=== PATIENT | male | born 1995 | race Caucasian/White ===

== ENCOUNTER 2016-12-22 01:15 | Emergency (ER) | payer OTHER ==
[~2016-12-22] VITALS: Ht 188 cm; Wt 55.9 kg
[2016-12-22 01:20] VITALS: TEMP 37; Ht 188 cm; Wt 55.9 kg
[2016-12-22] MEDS ORDERED: SODIUM CHLORIDE 0.9% 1000ML 1,000 ML IV STA (01:30)
[2016-12-22 01:42] LABS: BASO % 0.2 %; BASO ABS # 0.02 K/uL (0-0.2); COMPLETE YES; EOS % 0.2 %; HEMATOCRIT 46.4 % (42-52); IG% 0.2 %; LYMPH ABS # 2.34 K/uL (1.2-3.4); MEAN CELL VOLUME 90.6 fL (80-100); MEAN CORPUSCULAR HEMOGLOBIN 31.6 pg (25-34); MEAN CORPUSCULAR HGB CONC 34.9 g/dl (32-36); MEAN PLATELET VOLUME 9.5 fL (7.4-10.4); MONO % 7.7 %; NEUT % 62.7 %; PLATELET COUNT 305 K/uL (130-400); RED BLOOD COUNT 5.12 M/uL (4.7-6.1); WHITE BLOOD COUNT 8.06 K/uL (4.8-10.8)
[2016-12-22 01:49] LABS: BLOOD UREA NITROGEN 7 mg/dl (7-18); CREATININE 0.99 mg/dl (0.60-1.40); GLUCOSE 98 mg/dl (70-99); INR 1.1 (0.9-1.1); PARTIAL THROMBOPLASTIN RATIO 1.1; PROTHROMBIN TIME (PATIENT) 11.8 SECONDS (9.0-12.0)
[2016-12-22 01:50] LABS: ALT/SGPT 17 U/L (12-78); AST/SGOT 15 U/L (15-37); BUN/CREATININE RATIO 7.5 (10-20); CARBON DIOXIDE 27 mmol/L (21-32); CHLORIDE 106 mmol/L (98-107); POTASSIUM 3.7 mmol/L (3.5-5.1); SODIUM 140 mmol/L (136-145)
[2016-12-22 01:52] LABS: ALKALINE PHOSPHATASE 75 U/L (45-117)
[2016-12-22 02:01] LABS: ACETAMINOPHEN 25 ug/ml (10-30)
--- NOTE | 2016-12-22 06:03 | EMERGENCY ROOM VISIT NOTE ---
History Report prepared by Trav: Tom Flanagan Under the Supervision of: Dr. Aicha Beavers D.O. First contact with patient: 01:18 Chief Complaint: OVERDOSE (INTENTIONAL) Stated Complaint: OVERDOSE History of Present Illness The patient is a 21 year old male who presents to the Emergency Room with complaints of a multi-drug overdose beginning three hours ago. He states that he took Tylenol PM and Benadryl in an attempt to hurt himself. He states that he took 6 doses of Tylenol PM, and roughly 12 doses of Benadryl. The patient states that his intention was to not wake up again. He admits to drinking alcohol tonight and states "I was not in the right state of mind". He currently complains of dizziness. The patient states that he has been under a lot of stress recently. He states that he cannot afford school and just started a new job. He states that he left his parent's house and is not speaking with them. The patient has a history of depression, but does not follow up with a psychiatrist. He has tried to hurt himself in the past. He has a history of self cutting associated with releasing anger. The patient denies any nausea, or abdominal pain. He notes that he has a history of breathing problems which have worsened a bit recently. Ex girlfriend here to fill out 302 per case mgmt. Source of History: patient Onset: Three hours ago Symptom Intensity: 6 doses of Tylenol PM and 12 doses of Benadryl Quality: other (multi-drug overdose) Timing: other (episode) Associated Symptoms: No nausea, No abdominal pain Note: Additional symptoms: dizziness. Review of Systems See HPI for pertinent positives & negatives. A total of 10 systems reviewed and were otherwise negative. Past Medical & Surgical Medical Problems: (1) Depression (2) Suicide attempt Family History No pertinent family history stated. Social History Alcohol Use: occasionally Occupation Status: employed Current/Historical Medications No Active Prescriptions or Reported Meds Allergies Coded Allergies: No Known Allergies (Unverified , 12/22/16) Physical Exam Vital Signs Date Time Temp Pulse Resp B/P (MAP) Pulse Ox O2 Delivery O2 Flow Rate FiO2 12/22/16 09:16 77 12/22/16 07:30 77 18 119/75 97 Room Air 12/22/16 06:01 106 18 130/79 96 12/22/16 05:14 87 12/22/16 04:34 73 18 118/75 97 12/22/16 02:30 118/76 12/22/16 02:15 89 18 100 Room Air 12/22/16 02:04 139/86 12/22/16 01:45 96 19 100 Room Air 12/22/16 01:39 Room Air 12/22/16 01:39 Room Air 12/22/16 01:21 104 12/22/16 01:20 37.0 104 18 143/84 100 Room Air 12/22/16 01:17 143/94 Physical Exam GENERAL: Patient is thin. Alert, anxious appearing, well nourished, no distress , non-toxic EYE EXAM: normal conjunctiva, PERRL and EOM's grossly intact OROPHARYNX: no exudate, no erythema, lips, buccal mucosa, and tongue normal and mucous membranes are moist NECK: supple, no nuchal rigidity, no adenopathy, non-tender LUNGS: Clear to auscultation. Normal chest wall mechanics HEART: no murmurs, S1 normal and S2 normal ABDOMEN: abdomen soft, non-tender, normo-active bowel sounds, no masses, no rebound or guarding. BACK: Back is symmetrical on inspection and there is no deformity, no midline tenderness, no CVA tenderness. SKIN: no rashes and no bruising. Well healed scar from previous skin graft on the medial aspect of the left ankle. Normal pulses. No evidence of trauma. UPPER EXTREMITIES: upper extremities are grossly normal. LOWER EXTREMITIES: No pitting edema. NEURO EXAM: Normal sensorium, cranial nerves II-XII grossly intact, normal speech, no gross weakness of arms, no gross weakness of legs. PSYCH: Admits to SI. Admits to suicide attempt tonight. Medical Decision & Procedures ER Provider Diagnostic Interpretation: One View Chest X-ray interpreted by me: no effusion. No cardiomegaly. No wide mediastinum. No pulmonary edema. No pneumothorax. No fracture. No focal infiltrate. Laboratory Results 12/22/16 01:22 Red Blood Count 5.12, Mean Corpuscular Volume 90.6, Mean Corpuscular Hemoglobin 31.6, Mean Corpuscular Hemoglobin Concent 34.9, Mean Platelet Volume 9.5, Neutrophils (%) (Auto) 62.7, Lymphocytes (%) (Auto) 29.0, Monocytes (%) (Auto) 7.7, Eosinophils (%) (Auto) 0.2, Basophils (%) (Auto) 0.2, Neutrophils # (Auto) 5.04, Lymphocytes # (Auto) 2.34, Monocytes # (Auto) 0.62, Eosinophils # (Auto) 0.02, Basophils # (Auto) 0.02 12/22/16 01:22 Test 12/22/16 01:22 12/22/16 03:54 White Blood Count 8.06 K/uL (4.8-10.8) Red Blood Count 5.12 M/uL (4.7-6.1) Hemoglobin 16.2 g/dL (14.0-18.0) Hematocrit 46.4 % (42-52) Mean Corpuscular Volume 90.6 fL (80-100) Mean Corpuscular Hemoglobin 31.6 pg (25-34) Mean Corpuscular Hemoglobin Concent 34.9 g/dl (32-36) Platelet Count 305 K/uL (130-400) Mean Platelet Volume 9.5 fL (7.4-10.4) Neutrophils (%) (Auto) 62.7 % Lymphocytes (%) (Auto) 29.0 % Monocytes (%) (Auto) 7.7 % Eosinophils (%) (Auto) 0.2 % Basophils (%) (Auto) 0.2 % Neutrophils # (Auto) 5.04 K/uL (1.4-6.5) Lymphocytes # (Auto) 2.34 K/uL (1.2-3.4) Monocytes # (Auto) 0.62 K/uL (0.11-0.59) Eosinophils # (Auto) 0.02 K/uL (0-0.5) Basophils # (Auto) 0.02 K/uL (0-0.2) RDW Standard Deviation 38.2 fL (36.4-46.3) RDW Coefficient of Variation 11.5 % (11.5-14.5) Immature Granulocyte % (Auto) 0.2 % Immature Granulocyte # (Auto) 0.02 K/uL (0.00-0.02) Prothrombin Time 11.8 SECONDS (9.0-12.0) Prothromb Time International Ratio 1.1 (0.9-1.1) Activated Partial Thromboplast Time 28.1 SECONDS (21.0-31.0) Partial Thromboplastin Ratio 1.1 Anion Gap 7.0 mmol/L (3-11) Est Creatinine Clear Calc Drug Dose 93.3 ml/min Estimated GFR () 125.7 Estimated GFR (Non- 108.4 BUN/Creatinine Ratio 7.5 (10-20) Calcium Level 9.0 mg/dl (8.5-10.1) Total Bilirubin 1.6 mg/dl (0.2-1) Direct Bilirubin < 0.1 mg/dl (0-0.2) Aspartate Amino Transf (AST/SGOT) 15 U/L (15-37) Alanine Aminotransferase (ALT/SGPT) 17 U/L (12-78) Alkaline Phosphatase 75 U/L (45-117) Total Creatine Kinase 71 U/L (39-308) Total Protein 8.0 gm/dl (6.4-8.2) Albumin 4.3 gm/dl (3.4-5.0) Lipase 73 U/L (73-393) Salicylates Level < 1.7 mg/dl (2.8-20) Ethyl Alcohol mg/dL < 3.0 mg/dl (0-3) Acetaminophen Level 14 ug/ml (10-30) Laboratory results per my review. Medications Administered Medications (Trade) Dose Ordered Sig/Joann Route Start Time Stop Time Status Last Admin Dose Admin Sodium Chloride 1,000 ml @ 999 mls/hr Q1H1M STAT IV 12/22/16 01:30 12/22/16 02:30 DC 12/22/16 01:30 999 MLS/HR ECG Indication: toxicologic Rate (beats per minute): 101 Rhythm: sinus tachycardia Findings: no acute ischemic change, no ectopy, other (Borderline LVH. Normal axis. Normal intervals. ) ED Course 0123: The patient was evaluated in room C3. A complete history and physical exam was performed. 0130: Ordered Sodium Chloride 1000 ml @ 999 mls/hr IV. 0555: I spoke with the procurement representative from [address] [place] [address]. She feels that the patient would benefit from inpatient care. I signed the voluntary 201 petitioning statement. A bed search is under way. 0730: The patient was signed out to Dr. Mcfarlane pending bed placement. Medical Decision Differential diagnosis: Etiologies such as mood disorder, infection, hypoglycemia, electrolyte abnormalities, cardiac sources, intracerebral event, toxicologic, neurologic, as well as others were entertained. Pt with stable VS and tylenol levels trending down. Doubt significant tylenol ingestion, no evidence of anticholinergic toxicity. Initial tachycardia likely due to anxiety and mild dehydration. HR improved quickly. Labs otw reassuring. Doubt any additional co-ingestion. 302 started by ex-GF, however pt signed 201. Medication Reconcilliation Current Medication List: was personally reviewed by me Blood Pressure Screening Patient's blood pressure: Elevated blood pressure Blood pressure disposition: Elevated BP felt to be situational Impression Primary Impression: Drug overdose, intentional Additional Impressions: Suicidal ideation Depression Scribe Attestation The scribe's documentation has been prepared under my direction and personally reviewed by me in its entirety. I confirm that the note above accurately reflects all work, treatment, procedures, and medical decision making performed by me. Departure Information Dispostion Still a Patient (Signed out to Dr. Mcfarlane) Prescriptions No Active Prescriptions or Reported Meds Referrals No Doctor, Assigned (PCP) Patient Instructions My [facility] Problem Qualifiers Primary Impression: Drug overdose, intentional Encounter type: initial encounter Qualified Codes: T50.902A - Poisoning by unspecified drugs, medicaments and biological substances, intentional self-harm , initial encounter Additional Impressions: Depression Depression Type: unspecified Qualified Codes: F32.9 - Major depressive disorder, single episode, unspecified
--- NOTE | 2016-12-22 06:23 | DIAGNOSTIC IMAGING REPORT ---
CHEST ONE VIEW PORTABLE CLINICAL HISTORY: sob dyspnea COMPARISON STUDY: No previous studies for comparison. FINDINGS: The bones soft tissues and hemidiaphragms are normal. The cardiomediastinal silhouette is normal. The lungs are clear. The pulmonary vasculature is normal. IMPRESSION: Negative chest. The above report was generated using voice recognition software. It may contain grammatical, syntax or spelling errors. Electronically signed by: Bossman Boss M.D. 12/22/2016 6:21 AM Dictated Date/Time: 12/22/2016 6:21 AM
--- NOTE | 2016-12-22 08:33 | EMERGENCY ROOM VISIT NOTE ---
ED Visit Note First contact with patient: 08:32 The patient was taken in signout from Dr. Beavers at the change of shift. Please see that note for details. The patient was pending psychiatry voluntary placement. The patient was evaluated by the [facility] and accepted. Prior to discharge the patient was doing well and without complaints. The patient was transferred securely for further inpatient treatment.
[2016-12-22 10:37] LABS: BENZODIAZEPINE, URINE NEG (NEG); COCAINE,URINE NEG (NEG); PHENCYCLIDINE, URINE NEG (NEG)
[2016-12-22 16:39] VITALS: BP 123/82; PULSE 95; O2SAT 97
== END 2016-12-22 16:40 ==
LOC: EDBD 01:15 → C.EDC 01:17 → C.EDA 16:40
DX: T50.902A Poisoning by unspecified drugs, medicaments and biological substances, intentional self-harm, initial encounter (principal); R45.851 Suicidal ideations; F32.9 Major depressive disorder, single episode, unspecified; Z91.5 Personal history of self-harm

== ENCOUNTER 2017-03-21 15:13 | Emergency (ER) | payer OTHER ==
[~2017-03-21] VITALS: Ht 188 cm; Wt 59.6 kg
[2017-03-21 15:23] VITALS: TEMP 36.6; Ht 188 cm; Wt 59.6 kg
[2017-03-21] MEDS ORDERED: MOTRIN HOME PACK 600 MG (4)BTL PO ONE (15:45)
[2017-03-21] MEDS ORDERED: IBUPROFEN 600 MG TAB PO STA (15:49)
--- NOTE | 2017-03-21 15:55 | DIAGNOSTIC IMAGING REPORT ---
L KNEE 3 VIEWS CLINICAL HISTORY: L knee injury/contusion pain. Trauma. COMPARISON: None. DISCUSSION: The bones and joint spaces appear intact. There is no evidence of fracture, dislocation or bony disease. There is no evidence for soft tissue swelling. IMPRESSION: Negative study. The above report was generated using voice recognition software. It may contain grammatical, syntax or spelling errors. Electronically signed by: Bossman Boss M.D. 03/21/2017 3:53 PM Dictated Date/Time: 03/21/2017 3:53 PM
[2017-03-21 15:59] VITALS: BP 125/67; PULSE 71; O2SAT 97
--- NOTE | 2017-03-21 16:21 | EMERGENCY ROOM VISIT NOTE ---
History First contact with patient: 15:25 Chief Complaint: KNEEPAIN Stated Complaint: KNEE PAIN History of Present Illness The patient is a 22 year old male who presents to the Emergency Room with complaints of left knee pain. The patient reports that he walked into a desk twice approximately 2 weeks ago. The patient did not start to have any problems until approximately one week ago, and reports that the pain seems to be worsening. The pain is worse when walking down steps. He denies any instability, clicking or locking of the knee. He denies any pain extending into the inner aspect of the knee, posterior knee, calf, hamstrings or thigh. He denies any paresthesias or numbness of the left lower extremity, and also denies any left hip or back pain. The patient denies any significant problems with his knees in the past, and currently rates his discomfort a 7 out of 10 with weightbearing. Review of Systems 10 system review was performed and was negative except for pertinent positives and negatives as indicated in history of present illness Past Medical/Surgical History Medical Problems: (1) Depression (2) Suicide attempt Family History FH: cancer FH: diabetes mellitus FH: heart disease FH: hypertension Social History Smoking Status: Never Smoker Alcohol Use: occasionally Marital Status: single Housing Status: lives with roommate Occupation Status: employed Current/Historical Medications No Active Prescriptions or Reported Meds Physical Exam Vital Signs Date Time Temp Pulse Resp B/P (MAP) Pulse Ox O2 Delivery O2 Flow Rate FiO2 03/21/17 15:59 71 16 125/67 97 Room Air 03/21/17 15:23 36.6 76 20 113/76 99 Room Air Physical Exam CONSTITUTIONAL: Healthy and well nourished. Alert and oriented X 3 with positive affect. Patient does not appear in any acute distress. HEENT: Normocephalic, atraumatic. Pupils equal, round and reactive. NECK: Full active range of motion without discomfort. MUSCULOSKELETAL: Examination of the left knee does not show any obvious soft tissue edema, joint effusion, ecchymosis or erythema. No increased warmth to palpation. The patient has no tenderness to palpation through the gastroc, hamstrings or biceps. He has mild tenderness to palpation of the lateral patellar margin, distal quadriceps and patellar tendon. Mildly positive patellar grind test. Negative anterior draw, negative posterior draw. The patient exhibits full active flexion and extension of the knee without any crepitance. Patient has mild discomfort of the medial knee with valgus stress. No discomfort with varus stress. Pedal pulses are intact. INTEGUMENTARY: No rash or other significant dermatologic conditions noted. NEUROLOGIC: No focal neurologic deficits noted. Left lower extremity is sensory intact. Medical Decision & Procedures ER Provider Diagnostic Interpretation: My interpretation of left knee x-rays does not show any acute fracture, dislocation or obvious joint effusion. Radiologist report is as follows: L KNEE 3 VIEWS CLINICAL HISTORY: L knee injury/contusion pain. Trauma. COMPARISON: None. DISCUSSION: The bones and joint spaces appear intact. There is no evidence of fracture, dislocation or bony disease. There is no evidence for soft tissue swelling. IMPRESSION: Negative study. Medications Administered Medications (Trade) Dose Ordered Sig/Joann Route Start Time Stop Time Status Last Admin Dose Admin Ibuprofen (Motrin Tab) 600 mg NOW STAT PO 03/21/17 15:49 03/21/17 15:50 DC 03/21/17 15:59 600 MG ED Course Patient history and physical exam were performed. Nurse's notes were reviewed. Vital signs were reviewed and were normal. The patient was administered ibuprofen 600 mg at his request for pain. X-rays of the knee were normal. The patient was encouraged to intermittently apply ice to the knee. Ibuprofen and Tylenol in alternating fashion as needed for additional pain relief. The patient was offered crutches and knee immobilizer, but refused. The patient was instructed to follow-up with his PCP or orthopedics if symptoms are not improving within the next week. The patient was happy with plan of care, voice understanding of all discharge instructions, and rated his discomfort a 3 out of 10 at the time of discharge. Medical Decision Medication Reconcilliation Current Medication List: was personally reviewed by me Blood Pressure Screening Patient's blood pressure: Normal blood pressure Impression Primary Impression: Contusion of left knee Departure Information Prescriptions No Active Prescriptions or Reported Meds Referrals No Doctor, Assigned (PCP) Patient Instructions My [facility] Problem Qualifiers Primary Impression: Contusion of left knee Encounter type: initial encounter Qualified Codes: S80.02XA - Contusion of left knee, initial encounter
== END 2017-03-21 16:37 | disposition home or self-care (01) ==
LOC: C.EDB 15:13 → C.EDD 16:37
DX: S80.02XA Contusion of left knee, initial encounter (principal); W22.03XA Walked into furniture, initial encounter; F32.9 Major depressive disorder, single episode, unspecified; Z83.3 Family history of diabetes mellitus; Z82.49 Family history of ischemic heart disease and other diseases of the circulatory system